=== PATIENT | female | born 2000 | race Caucasian/White ===

== ENCOUNTER 2022-05-08 13:35 | Emergency (ER) | payer SELFPAY ==
--- NOTE | 2022-05-08 13:36 | W.ED.PSYCHS ---
HPI - Psych General: Chief Complaint: Psychiatric Symptoms Stated Complaint: SI Time Seen by Provider: 05/08/22 13:36 History of Present Illness: Ms. Monson is a 21-year-old female with history of depression who presents to the emergency department due to self-harm. She reports longstanding history of depression and was at [facility] in perhaps 2019 where she feels that it improved however unfortunately due to insurance issues has been unable to follow-up with an outpatient psychiatric care provider and has not been on medications. Previously was on Zoloft but felt like that did not particularly help. She found out this morning that her girlfriend was cheating on her with another friend who was supposed to be a close friend and she cut her arm. She denies suicidal intent and was doing it with the hope that her girlfriend would understand that not everything is about herself. No other injuries. Does intermittently have difficulty with sleep and appetite. Does have a history of cutting however has not for a long time. Otherwise denies medical complaints. No other specific changes in health, exacerbating, or alleviating factors identified. History of same: Yes Context: significant life stressor Associated psychiatric symptoms: depression Review of Systems General: Reports: 10 or more systems reviewed and unremarkable except in HPI and below PFSH ED PFSH: Medical History (Updated 05/08/22 @ 16:26 by Zaid Land MD) Depression Physical Exam Const: COMMON NORMALS: alert GENERAL APPEARANCE: cooperative and well developed HENMT: COMMON NORMALS: normocephalic and atraumatic HEAD & SCALP: normocephalic and atraumatic Eye: COMMON NORMALS: conjunctivae normal CONJUNCTIVA: Yes conjunctivae normal SCLERA: sclerae normal Neck/C-Spine: COMMON NORMALS: supple GENERAL: Yes trachea midline Resp: COMMON NORMALS: clear to auscultation bilaterally EFFORT & INSPECTION: Yes able to speak in complete sentences AUSCULTATION: clear to auscultation bilaterally Cardio: COMMON NORMALS: regular rate and regular rhythm RATE: regular rate RHYTHM: regular rhythm GI: COMMON NORMALS: Soft to palpation PALPATION: Yes Soft to palpation and No Tenderness to palpation present (GI) Extremity: GENERAL: Yes normal exam except as noted and No edema Neuro: COMMON NORMALS: moves all extremities SENSORIUM/ORIENTATION: Yes alert and No Orientation impaired Psych: COMMON NORMALS: mental status grossly normal and Normal thought process present THOUGHT PROCESS: Normal thought process present Skin: NARRATIVE SKIN EXAM: Multiple superficial transversely oriented lacerations about the left wrist. No active bleeding or injuries requiring repair Course Vital Signs: Vital signs: Vital Signs Temperature 97.8 F 05/08/22 13:38 Pulse Rate 72 05/08/22 16:59 Respiratory Rate 14 05/08/22 16:59 Blood Pressure 130/58 05/08/22 16:59 Pulse Oximetry 98 05/08/22 16:59 Oxygen Delivery Me thod 05/08/22 13:38 MDM - Psych Medical Decision Making 21-year-old presenting with depression and cutting. Cutting his transverse and superficial without repairable laceration identified. Patient denies suicidal or homicidal ideation. She denies suicidal attempt or intent with cutting. Evaluated by psychiatry service and satisfactory for outpatient management. The results of ED evaluation were given to the patient including prescriptions and/or symptomatic cares (if applicable) including appropriate and responsible use, followup plan, and return precautions. The patient verbalized understanding and felt safe for discharge. Medical Records I reviewed the patient's medical records. Lab Data I reviewed the patient's lab results. Discharge Plan Discharge Patient Disposition: Home Clinical Impression: Depression, Deliberate self-cutting Condition: Stable Prescriptions: No Action No Known Home Medications Discharge Orders: Discharge ED (Routine); Ordered 05/08/22 Ordered By: Zaid Land Discharge Diet: Usual diet Discharge Activity: Resume usual activity Patient Instructions: Depression (ED), Suicide Prevention (ED) Activity Restrictions/Additional Instructions: Thank you for visiting the emergency department. Your seen and evaluated for self-harm and depression. After discussion with psychiatry service you do not require inpatient management at this time. I recommend follow-up with behavioral health center. They offer sliding scale fee and financial assistance given your lack of insurance. They also have walk-in hours, please contact them for when these hours are. They are located at: [address] [address] Their phone number is: [phone] Please return to the emergency department for recurrent symptoms, self-harm, thoughts of harming yourself or others, thoughts of suicide, hallucinations, uncontrolled symptoms or anything else that you are concerned about a feel needs emergency department evaluation. If you or someone you care for is experiencing a psychiatric emergency, please call the crisis hotline ([employer]) 24-hours a day, 7 days a week at [phone]. Coding Level of Care Code ED [employer] for [facility] Exam Comprehensive
[2022-05-08 13:38] VITALS: BP 107/76; PULSE 98; RESP 18; TEMP 36.6; O2SAT 98; BMI 31.4
[2022-05-08] MEDS: tetanus-dipt-pertussis 0.5 mL SDV IM (14:46)
[2022-05-08 16:59] VITALS: BP 130/58; PULSE 72; RESP 14; O2SAT 98
== END 2022-05-08 17:00 | disposition home or self-care (01) ==
PROVIDERS: Emergency Provider Emergency Medicine
DX: F32.A Depression, unspecified (principal); R45.88 Nonsuicidal self-harm; S61.512A Laceration without foreign body of left wrist, initial encounter; X83.8XXA Intentional self-harm by other specified means, initial encounter; Z23 Encounter for immunization
CPT/HCPCS: 90471; 90715; 99283